=== PATIENT | female | born 1990 | race African-American/Black ===

== ENCOUNTER 2021-10-01 16:18 | Emergency (ER) | payer OTHER ==
[~2021-10-01] VITALS: Ht 170.2 cm; Wt 127.0 kg
[2021-10-01] MEDS ORDERED: MOTRIN800 MG PO (19:07)
[2021-10-01 19:20] VITALS: BP 130/88
== END 2021-10-01 19:20 | disposition home or self-care (01) | DRG 605 ==
LOC: ED 16:18
DX: S40.011A Contusion of right shoulder, initial encounter (principal); S90.31XA Contusion of right foot, initial encounter; S30.1XXA Contusion of abdominal wall, initial encounter; V43.52XA Car driver injured in collision with other type car in traffic accident, initial encounter